=== PATIENT | female | born 1985 | race Two or more races ===

== ENCOUNTER 2018-12-06 08:56 | Emergency (ER) | payer OTHER ==
[2018-12-06 09:08] VITALS: BP 125/81; PULSE 71; RESP 18; TEMP 97.8
[2018-12-06] MEDS ORDERED: DIAZEPAM 5 MG/ML 2 ML INJ IM STA (09:16)
[2018-12-06] MEDS ORDERED: KETOROLAC 60 MG/2 ML VIAL IM STA (09:16)
--- NOTE | 2018-12-06 09:19 | ED ---
Neck Injury/Pain HPI - General Chief Complaint: Neck Pain/Injury Stated Complaint: neck pain Time Seen by Provider: 12/06/18 09:10 Source: patient, RN notes reviewed Mode of arrival: ambulatory Limitations: no limitations - History of Present Illness Initial Comments: This is a 33-year-old female presents emergency Department chief complaint of right sided neck discomfort, right shoulder pain. Patient states it started 3 days ago when she woke up with slight sore neck. Patient states that the pain has worsened and she states that she has not been moving her shoulder and holding her head in a bent position. Patient states that when she turns towards the right sided makes his symptoms better. Patient denies any paresthesias. Patient states that she's does have some pain radiating down into her arm is exacerbated by movement. No chest pain or shortness of breath denies any trauma denies any rashes. Patient has tried some Biofreeze no [id number] Tylenol or Motrin taken. - Related Data Previous Rx's Medication Instructions Recorded Cyclobenzaprine [Flexeril] 10 mg PO TID PRN #15 tab 12/06/18 Ibuprofen [Motrin] 600 mg PO Q8HR PRN #30 tab 12/06/18 Allergies Allergy/AdvReac Type Severity Reaction Status Date / Time No Known Allergies Allergy Verified 12/06/18 09:03 Review of Systems ROS Statement: Those systems with pertinent positive or pertinent negative responses have been documented in the HPI. ROS Other: All systems not noted in ROS Statement are negative. Past Medical History Additional Past Medical History / Comment(s): MS History of Any Multi-Drug Resistant Organisms: None Reported Past Surgical History: Cholecystectomy, Tubal Ligation Past Psychological History: No Psychological Hx Reported Smoking Status: Current every day smoker Past Alcohol Use History: Occasional Past Drug Use History: Marijuana General Exam Limitations: no limitations General appearance: alert, in no apparent distress Head exam: Present: atraumatic, normocephalic, normal inspection Eye exam: Present: normal appearance, PERRL, EOMI. Absent: scleral icterus, conjunctival injection, periorbital swelling ENT exam: Present: normal exam, normal oropharynx, mucous membranes moist, TM's normal bilaterally, normal external ear exam Neck exam: Present: normal inspection, tenderness (Right cervical paraspinal, right trapezius). Absent: meningismus, full ROM (Decreased range of motion secondary to discomfort), lymphadenopathy Respiratory exam: Present: normal lung sounds bilaterally. Absent: respiratory distress, wheezes, rales, rhonchi, stridor, chest wall tenderness Cardiovascular Exam: Present: regular rate, normal rhythm, normal heart sounds. Absent: systolic murmur, diastolic murmur, rubs, gallop, clicks Back exam: Present: full ROM. Absent: tenderness, paraspinal tenderness, vertebral tenderness Neurological exam: Present: alert, oriented X3, CN II-XII intact, reflexes normal. Absent: motor sensory deficit Skin exam: Present: warm, dry, intact, normal color. Absent: rash Course Vital Signs 12/06/18 09:03 Temperature 97.8 F Pulse Rate 71 Respiratory 18 Rate Blood Pressure 125/81 O2 Sat by Pulse 100 Oximetry Medical Decision Making - Medical Decision Making 33-year-old female presented for neck pain. This is related to cervical strain, trapezius muscle spasms. Patient discharged with muscle relaxers, pain medication. Return parameters were discussed. Disposition Clinical Impression: Strain of neck muscle, Torticollis, Trapezius muscle spasm Disposition: HOME SELF-CARE Condition: Stable Instructions (If sedation given, give patient instructions): Cervical Strain (ED) Additional Instructions: Please return to the Emergency Department if symptoms worsen or any other concerns. Prescriptions: Cyclobenzaprine [Flexeril] 10 mg PO TID PRN #15 tab PRN Reason: Muscle Spasm Ibuprofen [Motrin] 600 mg PO Q8HR PRN #30 tab PRN Reason: Pain Is patient prescribed a controlled substance at d/c from ED?: No Referrals: Nonstaff,Physician [Primary Care Provider] - 1-2 days Time of Disposition: 10:23
--- NOTE | 2018-12-06 09:40 | XR ---
EXAMINATION TYPE: XR cervical spine comp DATE OF EXAM: 12/06/2018 COMPARISON: None HISTORY: Neck pain TECHNIQUE: Five-view cervical spine FINDINGS: Prevertebral space is normal. Posterior spinal lamellar line is intact. Vertebral body heig hts are preserved. Disc heights are preserved. Foramen are patent. Odontoid tip is obscured by occipu t is otherwise unremarkable. IMPRESSION: 1. Visualized cervical spine is unremarkable.
[2018-12-06] MEDS ORDERED: ACET/COD 300 MG/30 MG STARTER PACK 6 TAB BTL PO STA (10:23)
== END 2018-12-06 10:28 | disposition home or self-care (01) ==
LOC: EC 08:56
DX: S16.1XXA Strain of muscle, fascia and tendon at neck level, initial encounter (principal); M43.6 Torticollis; M62.830 Muscle spasm of back; F17.200 Nicotine dependence, unspecified, uncomplicated; X58.XXXA Exposure to other specified factors, initial encounter
CPT/HCPCS: 72050; 99283; 96372 ×2; J3360; J1885